=== PATIENT | female | born 1985 | race Caucasian/White ===

== ENCOUNTER → 2020-10-13 14:05 | Outpatient (BNVA) | payer MEDICAID, SELFPAY | PROVIDERS: PCP Nurse Practitioner Family; Visit Provider Obstetrics & Gynecology | DX: Z01.419 Encounter for gynecological examination (general) (routine) without abnormal findings (principal); L70.9 Acne, unspecified; O24.919 Unspecified diabetes mellitus in pregnancy, unspecified trimester | CPT/HCPCS: 80076; 82465; 83001; 83002; 83036; 84403; 84443; 86803; 87806; 88175 ==

== ENCOUNTER 2020-10-23 09:19 | Outpatient (CLI) | payer MEDICAID, SELFPAY ==
--- NOTE | 2020-10-23 09:00 | MM_ITS ---
WS: [id number] Bilateral screening digital mammogram, 10/23/2020 Clinical Data: Z12.39 - Encounter for other screening for malignant neop... Comparison: 07/30/2015, 12/10/2011. Findings: The breast parenchymal pattern shows heterogeneous density No spiculated masses or clustered calcific ations are seen. There are no secondary signs of carcinoma. MM/[id number] Impression: 1. Negative bilateral mammogram unchanged. 2. Recommend annual screening mammograms beginning at age 40.. BIRADS: 1-Negative FOLLOW UP: See Report The CAD time checker was used.
== END 2020-10-23 09:20 | disposition home or self-care (01) ==
PROVIDERS: PCP Nurse Practitioner Family; Visit Provider Obstetrics & Gynecology
DX: Z12.31 Encounter for screening mammogram for malignant neoplasm of breast (principal)
CPT/HCPCS: 77067